=== PATIENT | male | born 1960 | race Caucasian/White ===

== ENCOUNTER 2017-01-09 06:39 | Observation (INO) | payer OTHER ==
[~2017-01-09] VITALS: Ht 167.6 cm; Wt 83.6 kg
[2017-01-09] VITALS (8 sets, daily range): BP systolic 122–143; BP diastolic 73–103; PULSE 96–121; RESP 14–22; TEMP 98.8; O2SAT 92–98
[2017-01-09] MEDS ORDERED: ALPR.5 PO (06:55)
[2017-01-09] MEDS ORDERED: AMLO5TAB2 PO (06:55)
[2017-01-09] MEDS ORDERED: AMBI5TAB PO (06:55)
[2017-01-09] MEDS ORDERED: LOSA25TA PO (06:55)
[2017-01-09] MEDS ORDERED: SODIUM CHLOR 0.9% 1000 ML INJ 1,000 ML IV ONE (07:15)
[2017-01-09] MEDS ORDERED: THIAMINE INJ 100 MG in SODIUM CHLORIDE 0.9% INJ 100 ML IV ONE (07:15)
[2017-01-09] MEDS ORDERED: SODIUM CHLORIDE 0.9% FLUSH 5 ML FLUSH IVF PRN (07:15)
[2017-01-09 07:36] LABS: AUTOMATED NEUTROPHIL # 5.5 TH/MM3 (1.8-7.7); BASOPHIL % 0.4 % (0.0-2.0); EOSINOPHIL % 0.4 % (0.0-4.0); HEMATOCRIT 42.7 % (39.0-51.0); HEMO FLAGS DIFF FINAL; LYMPH % 23.8 % (9.0-44.0); LYMPHOCYTE # 1.9 TH/MM3 (1.0-4.8); MEAN CELL VOLUME 93.1 FL (80.0-100.0); MEAN CORPUSCULAR HEMOGLOBIN 33.1 PG (27.0-34.0); MEAN CORPUSCULAR HGB CONC 35.5 % (32.0-36.0); MONO % 6.7 % (0.0-8.0); NEUT % 68.7 % (16.0-70.0); PLATELET COUNT 219 TH/MM3 (150-450); RED BLOOD COUNT 4.59 MIL/MM3 (4.50-5.90); RED CELL DISTRIBUTION WIDTH 13.7 % (11.6-17.2)
[2017-01-09 07:52] LABS: ALT (GPT) 110 U/L (12-78); ANION GAP 13 MEQ/L (5-15); AST (GOT) 101 U/L (15-37); BICARBONATE 27.2 MEQ/L (21.0-32.0); BLOOD UREA NITROGEN 12 MG/DL (7-18); CHLORIDE 106 MEQ/L (98-107); GLOMERULAR FILTRATION RATE 80 ML/MIN (>89); POTASSIUM 3.9 MEQ/L (3.5-5.1); SODIUM (NA) 146 MEQ/L (136-145)
[2017-01-09 07:56] LABS: ALKALINE PHOSPHATASE 100 U/L (45-117); TOTAL BILIRUBIN ADULT 0.3 MG/DL (0.2-1.0)
--- NOTE | 2017-01-09 08:35 | RADRPT ---
EXAM DATE/TIME: 01/09/2017 08:13 [facility] COMPARISON: No previous studies available for comparison. INDICATIONS : Trauma. Fall. Hit right eye on edge of table. RADIATION DOSE: 39.39 CTDIvol (mGy) MEDICAL HISTORY : Hypertension. SURGICAL HISTORY : None. ENCOUNTER: Initial ACUITY: 1 day PAIN SCALE: 2/10 LOCATION: cranial TECHNIQUE: Multiple contiguous axial images were obtained of the head. Using automated exposure control and adj ustment of the mA and/or kV according to patient size, radiation dose was kept as low as reasonably a chievable to obtain optimal diagnostic quality images. FINDINGS: CEREBRUM: Small chronic lacunar infarctions are seen involving the basal ganglia bilaterally. The ventricles ar e normal for age. No evidence of midline shift, mass lesion, hemorrhage or acute infarction. No ext ra-axial fluid collections are seen. POSTERIOR FOSSA: The cerebellum and brainstem are intact. The 4th ventricle is midline. The cerebellopontine angle i s unremarkable. EXTRACRANIAL: The visualized portion of the orbits is intact. Note is made of periorbital soft tissue swelling invo lving the infraorbital soft tissues on the right. SKULL: The calvaria is intact. No evidence of skull fracture. CONCLUSION: 1. Infraorbital soft tissue swelling on the right. 2. Small chronic lacunar infarctions involving the basal ganglia bilaterally. 3. No acute intracranial abnormality. Matthias Concepcion Jr., MD on January 09, 2017 at 8:30 Board Certified Radiologist. This report was verified electronically.
--- NOTE | 2017-01-09 08:35 | PD ---
HPI Chief Complaint: Eye Problems/Injury Time Seen by Provider: 06:56 Travel History International Travel<30 days: No Contact w/Intl Traveler<30days: No Traveled to known affect area: No History of Present Illness HPI Patient 56-year-old male who was drinking last night for bike week staying in a hotel here. His states that he falls fairly frequently when he gets out of bed after drinking but they have soft carpet at home. The hotel this staying and has hardwood floors and he fell last night and she found him on the floor passed out. He is obviously intoxicated on arrival and states that he has right eye pain. Denies any other injuries. Denies any chest pain shortness of breath abdominal pain nausea vomiting diarrhea. PFSH Past Medical History Anxiety: Yes Diminished Hearing: No Hypertension: Yes Immunizations Current: Yes Tetanus Vaccination: < 5 Years Influenza Vaccination: Yes Past Surgical History Surgical History: No Previous Surgery Social History Alcohol Use: Yes Tobacco Use: No Substance Use: No Allergies-Medications (Allergen,Severity, Reaction): Coded Allergies: No Known Allergies (Unverified , 01/09/17) Reported Meds & Prescriptions Reported Meds & Active Scripts Active Reported Simvastatin 20 Mg Tab 20 Mg PO DAILY Amlodipine (Amlodipine Besylate) 5 Mg Tab 2.5 Mg PO DAILY Xanax (Alprazolam) 0.5 Mg Tab 0.5 Mg PO Q6H PRN Ambien (Zolpidem Tartrate) 5 Mg Tab 12.5 Mg PO HS PRN Losartan (Losartan Potassium) 25 Mg Tab 50 Mg PO DAILY Review of Systems Except as stated in HPI: all other systems reviewed are Neg Physical Exam Narrative GENERAL: Well-developed well-nourished no apparent distress SKIN: Warm and dry. HEAD: No davis signs, there is carlos manuel-orbital edema and ecchymosis on the right. Normocephalic. EYES: Pupils equal and round and reactive to light. No scleral icterus. No injection or drainage. There is significant subconjunctival hemorrhage on the right covering nearly the entire sclera. Vision is intact bilaterally. Visual carpio are intact bilaterally. Ashvin-Pen shows a pressure of 9 on the right, there is no floor seen uptake. ENT: No nasal bleeding or discharge. Mucous membranes pink and moist. NECK: Trachea midline. No JVD. No cervical tenderness in the midline, no step- off. CARDIOVASCULAR: Regular rate and rhythm. No murmur appreciated. RESPIRATORY: No accessory muscle use. Clear to auscultation. Breath sounds equal bilaterally. GASTROINTESTINAL: Abdomen soft, non-tender, nondistended. Hepatic and splenic margins not palpable. MUSCULOSKELETAL: No obvious deformities. No clubbing. No cyanosis. No edema. Extremities are atraumatic, pulses motor and sensory intact distal in all 4 extremities compartments are soft. There are no TL or S spine tenderness or step-off.. NEUROLOGICAL: Awake and alert. Cranial nerves II through XII are grossly intact nonfocal. Motor grossly within normal limits. Minimally slurred speech consistent with alcohol intoxication. Follows commands in all 4 extremities. PSYCHIATRIC: Appropriate mood and affect; insight and judgment normal. Data Data Last Documented VS Vital Signs Date Time Temp Pulse Resp B/P Pulse Ox O2 Delivery O2 Flow Rate FiO2 01/09/17 13:24 109 22 130/75 92 Nasal Cannula 2 Orders Electrocardiogram (01/09/17 07:05) Complete Blood Count With Diff (01/09/17 07:05) Comprehensive Metabolic Panel (01/09/17 07:05) Ct Brain W/O Iv Contrast(Rout) (01/09/17 07:05) Blood Glucose (01/09/17 07:05) Ecg Monitoring (01/09/17 07:05) Iv Access Insert/Monitor (01/09/17 07:05) Oximetry (01/09/17 07:05) Sodium Chloride 0.9% Flush (Ns Flush) (01/09/17 07:15) Alcohol (Ethanol) (01/09/17 07:05) Ct Cerv Spine W/O Contrast (01/09/17 ) Ct Facial Bones W/O Iv Cont (01/09/17 ) Sodium Chlor 0.9% 1000 Ml Inj (Ns 1000 M (01/09/17 07:15) Thiamine Inj (Thiamine Inj) (01/09/17 07:15) Apply Cervical Collar (01/09/17 07:07) Morphine Inj (Morphine Inj) (01/09/17 08:45) Ondansetron Inj (Zofran Inj) (01/09/17 08:45) Fluorescein Strip (Kmirq-H-Isodah A.T.) (01/09/17 08:45) Proparacaine 0.5% Opth Soln (Alcaine 0.5 (01/09/17 08:45) Admit Order (Ed Use Only) (01/09/17 ) Labs Laboratory Tests Test 01/09/17 07:10 White Blood Count 8.0 TH/MM3 Red Blood Count 4.59 MIL/MM3 Hemoglobin 15.2 GM/DL Hematocrit 42.7 % Mean Corpuscular Volume 93.1 FL Mean Corpuscular Hemoglobin 33.1 PG Mean Corpuscular Hemoglobin 35.5 % Concent Red Cell Distribution Width 13.7 % Platelet Count 219 TH/MM3 Mean Platelet Volume 7.4 FL Neutrophils (%) (Auto) 68.7 % Lymphocytes (%) (Auto) 23.8 % Monocytes (%) (Auto) 6.7 % Eosinophils (%) (Auto) 0.4 % Basophils (%) (Auto) 0.4 % Neutrophils # (Auto) 5.5 TH/MM3 Lymphocytes # (Auto) 1.9 TH/MM3 Monocytes # (Auto) 0.5 TH/MM3 Eosinophils # (Auto) 0.0 TH/MM3 Basophils # (Auto) 0.0 TH/MM3 CBC Comment DIFF FINAL Differential Comment Sodium Level 146 MEQ/L Potassium Level 3.9 MEQ/L Chloride Level 106 MEQ/L Carbon Dioxide Level 27.2 MEQ/L Anion Gap 13 MEQ/L Blood Urea Nitrogen 12 MG/DL Creatinine 0.97 MG/DL Estimat Glomerular Filtration 80 ML/MIN Rate Random Glucose 98 MG/DL Calcium Level 8.4 MG/DL Total Bilirubin 0.3 MG/DL Aspartate Amino Transf 101 U/L (AST/SGOT) Alanine Aminotransferase 110 U/L (ALT/SGPT) Alkaline Phosphatase 100 U/L Total Protein 7.4 GM/DL Albumin 4.1 GM/DL Ethyl Alcohol Level 318 MG/DL [facility] Medical Decision Making Medical Screen Exam Complete: Yes Emergency Medical Condition: Yes Interpretation(s) EKG shows normal sinus rhythm with a borderline left axis deviation, normal R- wave progression. No concerning ST-T changes. Intervals within normal limits. Discussed the borderline EKG. Differential Diagnosis Closed head injury, open globe unlikely, subconjunctival hemorrhage, retrobulbar hematoma, intoxication, sleep apnea. Narrative Course Very intoxicated 56-year-old male with a history of head injury last night/ early this morning. Patient does have significant edema and subconjunctival hemorrhage on the right. CT scans are reassuring. His c-collar was removed. Eye exam is reassuring. However he remains significantly intoxicated and will be observed in the emergency department until at least clinical sobriety for reassessment by myself. On reassess at 1330, patient is fairly difficult to arouse and is snoring very loudly. Pulse oximeter was placed on him a satting 80. With some stimulation he arouses and begins to said 98% on 2 L nasal cannula. He is still very groggy. He did have significant alcohol on arrival however given his prolonged arousal at this point I think that observation for neurologic checks is appropriate. Discussed with the residents on-call who will admit. Attending physician will be Dr. Farias. Last [address] 01/09/17 0705 Signed Impressions: Service Date/Time: Monday, January 09, 2017 08:13 - CONCLUSION: 1. Infraorbital soft tissue swelling on the right. 2. Small chronic lacunar infarctions involving the basal ganglia bilaterally. 3. No acute intracranial abnormality. Matthias Concepcion Jr., MD Maxillofacial CT 01/09/17 0000 Signed Impressions: Service Date/Time: Monday, January 09, 2017 08:13 - CONCLUSION: Right periorbital soft tissue swelling Bilateral exophthalmos No evidence of acute bony injury or soft tissue injury to the orbital contents. Luis Barrios MD Cervical Spine CT 01/09/17 0000 Signed Impressions: Service Date/Time: Monday, January 09, 2017 08:13 - CONCLUSION: 1. No fracture or dislocation. 2. Multilevel degenerative changes most pronounced at C6-C7 with significant central canal stenosis. Matthias Concepcion Jr., MD Diagnosis Primary Impression: Concussion Qualified Code: S06.0X9A - Concussion, with LOC of unspecified duration, initial encounter Additional Impressions: Alcohol intoxication Sleep apnea Admitting Information Admitting Physician Requests: Observation Condition: Stable Durga Huffman MD Jan 09, 2017 08:35
--- NOTE | 2017-01-09 08:41 | RADRPT ---
EXAM DATE/TIME: 01/09/2017 08:13 [facility] COMPARISON: No previous studies available for comparison. INDICATIONS : Trauma. Fall. Hit right eye on edge of table. RADIATION DOSE: 24.59 CTDIvol (mGy) MEDICAL HISTORY : Hypertension. SURGICAL HISTORY : None. ENCOUNTER: Initial ACUITY: 1 day PAIN SCALE: 0/10 LOCATION: neck TECHNIQUE: Volumetric scanning of the cervical spine was performed. Multiplanar reconstructions in the sagittal, coronal and oblique axial planes were performed. Using automated exposure control and adjustment o f the mA and/or kV according to patient size, radiation dose was kept as low as reasonably achievable to obtain optimal diagnostic quality images. FINDINGS: VERTEBRAE: Normal vertebral body height. ALIGNMENT: No evidence of subluxation. C2-C3: The bony spinal canal is normal in size. No evidence of disc bulge or herniation. The neural forami na are bilaterally patent. C3-C4: A mild central bulge. No abutment of the cord or central canal stenosis. Bony uncovertebral hypertrop hy with mild narrowing of the right neural foramen. The left remains patent. C4-C5: There is disc space narrowing with a broad-based disc osteophyte complex. No central canal stenosis. Bony uncovertebral hypertrophy generates mild narrowing of the neural foramina bilaterally. C5-C6: Disc space narrowing with broad-based disc osteophyte complex abuts the ventral portion of the cord. There is narrowing of the lateral recesses bilaterally as well as the neural foramen. C6-C7: There is disc space narrowing with a broad-based disc osteophyte complex which causes significant juliann tral canal stenosis. Anterior to posterior dimension of the central canal is 5 mm. Bony uncovertebral hypertrophy causes narrowing of the lateral recesses as well as the neural foramen bilaterally. C7-T1: The bony spinal canal is normal in size. No evidence of disc bulge or herniation. The neural forami na are bilaterally patent. CONCLUSION: 1. No fracture or dislocation. 2. Multilevel degenerative changes most pronounced at C6-C7 with significant central canal stenosis. Matthias Concepcion Jr., MD on January 09, 2017 at 8:34 Board Certified Radiologist. This report was verified electronically.
[2017-01-09] MEDS ORDERED: PROPARACAINE HCL 0.5% OPHT SOLN 15 ML BTL EACH EYE ONE (08:45)
[2017-01-09] MEDS ORDERED: MORPHINE SULFATE 8 MG/ML INJ IV PUSH ONE (08:45)
[2017-01-09] MEDS ORDERED: FLUORESCEIN SOD 1 MG STRIP EACH EYE ONE (08:45)
[2017-01-09] MEDS ORDERED: ONDANSETRON HCL 4 MG/2 ML VIAL IV PUSH ONE (08:45)
--- NOTE | 2017-01-09 09:10 | RADRPT ---
EXAM DATE/TIME: 01/09/2017 08:13 [facility] COMPARISON: No previous studies available for comparison. INDICATIONS : Trauma. Fall. Hit right eye on edge of table. Bruising around right eye. RADIATION DOSE: 65.23 CTDIvol (mGy) MEDICAL HISTORY : Hypertension. SURGICAL HISTORY : None. ENCOUNTER: Initial ACUITY: 1 day PAIN SCORE: 8/10 LOCATION: Right facial TECHNIQUE: Volumetric scanning of the facial bones was performed. Using automated exposure control and adjustme nt of the mA and/or kV according to patient size, radiation dose was kept as low as reasonably achiev able to obtain optimal diagnostic quality images. FINDINGS: ORBITS: Bilateral exophthalmos is noted. There is mild right periorbital soft tissue swelling. The orbital an d infraorbital osseous structures are intact. The retroconal structures have a normal configuration. No radiopaque foreign bodies are seen. NASAL BONE: The nasal bone and maxillary spine are intact ZYGOMATIC ARCHES: Symmetric without evidence of fracture. SINUSES: The maxillary, ethmoid and frontal sinuses are intact. No air-fluid levels seen. NASAL CAVITY: The nasal septum is intact and midline. The lacrimal ducts are intact. SOFT TISSUES: No radiopaque foreign bodies seen. No soft-tissue swelling is seen. INTRACRANIAL: No intracranial air seen. CRIBIFORM PLATE: Grossly intact. CONCLUSION: Right periorbital soft tissue swelling Bilateral exophthalmos No evidence of acute bony injury or soft tissue injury to the orbital contents. Luis Barrios MD on January 09, 2017 at 9:05 Board Certified Radiologist. This report was verified electronically.
[2017-01-09] MEDS ORDERED: ZOLPIDEM TARTRATE 5 MG TAB PO PRN (13:45)
--- NOTE | 2017-01-09 13:46 | HHI.HP ---
[facility] Service Family Medicine Primary Care Physician Non-Staff Admission Diagnosis Concussion/Altered mental status Diagnoses: Chief Complaint: Fall International Travel<30 Days: No Contact w/Intl Traveler<30days: No Known Affected Area: No History of Present Illness 56 y/o male presents to ED after falling last night. is present and provides some of the history. He doesn't remember what happened last night. He rolled out of bed this morning and hit his eye. was present, didn't hear him fall, but found him on the ground, crawling. She was concerned about the amount of blood present, so called [facility]. They are here in town from [place], here at a hotel. Per , she states he drinks 1/2 liter of Bacardi. He usually drinks a 1-3 shots of liquor/night. She is concerned about his drinking. He states he has quit in the past. Never had withdrawal seizures or blacked out. No nausea/vomiting today. reports he vomited last night. Endorses headache. No fever/chills, dizziness. Thirsty. Some pain around eye. No blurry vision or difficulty seeing. States he usually has trouble sleeping. Usually snores while sleeping. Been diagnosed with sleep apnea, doesn't use CPAP. (Neptali Brandt MD R1) Review of Systems Constitutional: DENIES: Fever, Chills, Dizziness, Night Sweats Eyes: DENIES: Blurred vision, Eye pain, Photosensitivity, Double Vision Ears, nose, mouth, throat: DENIES: Throat pain Respiratory: COMPLAINS OF: Snoring, DENIES: Cough, Shortness of breath Cardiovascular: DENIES: Chest pain, Palpitations Gastrointestinal: DENIES: Abdominal pain, Black stools, Bloody stools, Constipation, Diarrhea, Nausea, Vomiting, Difficulty Swallowing Genitourinary: DENIES: Urgency, Hematuria, Dysuria Musculoskeletal: DENIES: Joint pain, Neck pain Integumentary: DENIES: Abnormal pigmentation, Rash Neurologic: COMPLAINS OF: Headache, DENIES: Seizures Psychiatric: DENIES: Anxiety, Confusion (Neptali Brandt MD R1) Past Family Social History Past Medical History HTN Sleep apnea HLD Past Surgical History None Reported Medications Reported Meds & Active Scripts Active Reported Amlodipine (Amlodipine Besylate) 5 Mg Tab 5 Mg PO DAILY Xanax (Alprazolam) 0.5 Mg Tab 0.5 Mg PO Q6H PRN Ambien (Zolpidem Tartrate) 5 Mg Tab 5 Mg PO HS PRN Losartan (Losartan Potassium) 25 Mg Tab 25 Mg PO DAILY (Neptali Brandt MD R1) Allergies: Coded Allergies: No Known Allergies (Unverified , 01/09/17) Active Ordered Medications Active Medications Fluorescein Sodium (Lxnnv-Y-Mgppzr A.t.) 1 mg ONCE ONCE EACH EYE Last administered on 01/09/17 08:45; Admin Dose 1 MG; Start 01/09/17 at 08:45; Stop 01/09/17 at 08:46; Status DC IV Flush 2 ml 2 ml UNSCH PRN IVF; Start 01/09/17 at 07:15 Morphine Sulfate (Morphine Inj) 6 mg ONCE ONCE IV PUSH Last administered on 08:45; Admin Dose 6 MG; Start 01/09/17 at 08:45; Stop 01/09/17 at 08:46 ; Status DC Ondansetron HCl (Zofran Inj) 4 mg ONCE ONCE IV PUSH Last administered on 08:45; Admin Dose 4 MG; Start 01/09/17 at 08:45; Stop 01/09/17 at 08:46; Status DC Proparacaine HCl (Alcaine 0.5% Opht Soln) 1 drop ONCE ONCE EACH EYE Last administered on 01/09/17 09:07; Admin Dose 1 DROP; Start 01/09/17 at 08:45; Stop 01/09/17 at 08:46; Status DC Sodium Chloride 1,000 ml @ 999 mls/hr BOLUS ONCE IV Last administered on 07:38; Admin Dose 999 MLS/HR; Start 01/09/17 at 07:15; Stop 01/09/17 at 08: 15; Status DC Thiamine HCl/ Sodium Chloride (Thiamine Inj/NS Inj) 101 ml @ 101 mls/hr ONCE ONCE IV Last administered on 01/09/17 07:15; Admin Dose 101 MLS/HR; Start 01/09 at 07:15; Stop 01/09/17 at 08:14; Status DC Family History Mother-cancer Father-healthy Social History Alcohol - 1-3 shots liquor/night Tobacco - denies Illicit drug use - denies (Neptali Brandt MD R1) Physical Exam Vital Signs Vital Signs Date Time Temp Pulse Resp B/P Pulse Ox O2 Delivery O2 Flow Rate FiO2 01/09/17 13:24 109 22 130/75 92 Nasal Cannula 2 01/09/17 10:54 121 20 132/89 96 Nasal Cannula 2 01/09/17 08:50 16 01/09/17 08:35 96 14 124/91 97 Nasal Cannula 2 01/09/17 08:11 98 Nasal Cannula 2 01/09/17 06:46 101 18 132/103 93 Physical Exam GENERAL: This is a well-nourished, well-developed patient, in no apparent distress. Groggy SKIN: No rashes, ecchymoses or lesions. Cool and dry. HEAD: Atraumatic. Normocephalic. No temporal or scalp tenderness. EYES: Pupils equal round and reactive. Extraocular motions intact. Right subconjunctival hemorrhage. Bruising around right eye and laceration on right eyebrow. ENT: Nose without bleeding, purulent drainage or septal hematoma. Throat without erythema, tonsillar hypertrophy or exudate. Uvula midline. Airway patent. NECK: Trachea midline. No JVD or lymphadenopathy. Supple, nontender, no meningeal signs. CARDIOVASCULAR: Tachycardic to 110s. Normal rhythm without murmurs, gallops, or rubs. RESPIRATORY: Clear to auscultation. Breath sounds equal bilaterally. No wheezes , rales, or rhonchi. GASTROINTESTINAL: Abdomen soft, non-tender, nondistended. No hepato-splenomegaly , or palpable masses. No guarding. MUSCULOSKELETAL: Extremities without clubbing, cyanosis, or edema. No joint tenderness, effusion, or edema noted. No calf tenderness. NEUROLOGICAL: Awake and alert. Motor and sensory grossly within normal limits. Slurred speech. Laboratory Laboratory Tests Test 01/09/17 07:10 White Blood Count 8.0 Red Blood Count 4.59 Hemoglobin 15.2 Hematocrit 42.7 Mean Corpuscular Volume 93.1 Mean Corpuscular Hemoglobin 33.1 Mean Corpuscular Hemoglobin 35.5 Concent Red Cell Distribution Width 13.7 Platelet Count 219 Mean Platelet Volume 7.4 Neutrophils (%) (Auto) 68.7 Lymphocytes (%) (Auto) 23.8 Monocytes (%) (Auto) 6.7 Eosinophils (%) (Auto) 0.4 Basophils (%) (Auto) 0.4 Neutrophils # (Auto) 5.5 Lymphocytes # (Auto) 1.9 Monocytes # (Auto) 0.5 Eosinophils # (Auto) 0.0 Basophils # (Auto) 0.0 CBC Comment DIFF FINAL Differential Comment Sodium Level 146 Potassium Level 3.9 Chloride Level 106 Carbon Dioxide Level 27.2 Anion Gap 13 Blood Urea Nitrogen 12 Creatinine 0.97 Estimat Glomerular Filtration 80 Rate Random Glucose 98 Calcium Level 8.4 Total Bilirubin 0.3 Aspartate Amino Transf 101 (AST/SGOT) Alanine Aminotransferase 110 (ALT/SGPT) Alkaline Phosphatase 100 Total Protein 7.4 Albumin 4.1 Ethyl Alcohol Level 318 (Neptali Brandt MD R1) Result Diagram: 01/09/17 0710 01/09/17 0710 Imaging Last Impressions Head CT 01/09/17 0705 Signed Impressions: Service Date/Time: Monday, January 09, 2017 08:13 - CONCLUSION: 1. Infraorbital soft tissue swelling on the right. 2. Small chronic lacunar infarctions involving the basal ganglia bilaterally. 3. No acute intracranial abnormality. Matthias Concepcion Jr., MD Maxillofacial CT 01/09/17 0000 Signed Impressions: Service Date/Time: Monday, January 09, 2017 08:13 - CONCLUSION: Right periorbital soft tissue swelling Bilateral exophthalmos No evidence of acute bony injury or soft tissue injury to the orbital contents. Luis Barrios MD Cervical Spine CT 01/09/17 0000 Signed Impressions: Service Date/Time: Monday, January 09, 2017 08:13 - CONCLUSION: 1. No fracture or dislocation. 2. Multilevel degenerative changes most pronounced at C6-C7 with significant central canal stenosis. Matthias Concepcion Jr., MD (Neptali Brandt MD R1) Assessment and Plan Assessment and Plan 56 y/o male with history of HTN, HLD presents with alcohol intoxication. Will admit to observation overnight to monitor respiratory status and alcohol intoxication. Code Status Full Discussed Condition With Dr. Farias (Neptali Brandt MD R1) Attending Attestation Patient seen and examined. Case reviewed and discussed with the resident team. Agree with plan of care as discussed with me and documented in the resident note. (Laila Farias MD) Problem List: (1) Alcohol intoxication Status: Acute Plan: Alcohol level 318 on arrival. Per ED report, patient intoxicated and falling asleep with desaturation. Patient more alert during history taking. 's per , he normally drinks 1-3 shots of liquor per night. However last night he drank half a liter of Bacardi, per . -[facility] protocol -Monitor vitals and neurological status -Folic acid, thiamine, multivitamins -Protonix 40mg PO daily for GI protection -Urine drug screen -Discussed risks of alcohol use and options for quitting. ED -Given 100mg Thiamine IV (2) Sleep apnea Status: Acute Plan: Has history of sleep apnea, but doesn't like wearing his CPAP at night. During exam, patient fell sleep and was snoring in the room. states that she is worried about him especially when she notices he stops breathing during the night. -CPAP at night while hospitalized -Recommended polysomnography as outpatient -Continuous pulse ox -Titrate nasal cannula oxygen PRN (3) HTN (hypertension) Status: Acute Plan: Blood pressure 132/103 arrival. Take several medications at home. is bringing medications for accurate dose. -Continue amlodipine 5mg daily -Continue losartan 25mg daily (4) Conjunctival hemorrhage, right eye Status: Acute Plan: Patient fell out of bed and hit his eye. Patient has normal eye movement , pupils equal round and reactive, no changes in vision. Imaging reassuring. Maxillofacial CT: right periorbital soft tissue swelling. No acute bony injury or soft tissue injury to the orbital contents Cervical spine CT: no fracture or dislocation Head CT: Infraorbital soft tissue swelling on the right -Pain control with tylenol, morphine for breakthrough pain -Symptomatic management (5) FEN Status: Acute Plan: Fluids: NS @ 125mls/hr Electrolytes: Na 146, continue to monitor, replace as necessary Nutrition: Regular diet DVT ppx: Lovenox 40mg sq daily GI ppx: Protonix (Neptali Brandt MD R1) Problem Qualifiers (1) Alcohol intoxication: Qualified Code: F10.120 - Alcohol intoxication, uncomplicated (2) Sleep apnea: Qualified Code: G47.30 - Sleep apnea, unspecified type (3) HTN (hypertension): Qualified Code: I10 - Essential hypertension Neptali Brandt MD R1 Jan 09, 2017 13:46 Laila Farias MD Jan 10, 2017 11:55
[2017-01-09] MEDS: THIAMINE HCL 100 MG TAB PO SCH (14:45)
[2017-01-09] MEDS ORDERED: FLUMAZENIL 0.5 MG/5 ML VIAL IV PUSH PRN (14:45)
[2017-01-09] MEDS ORDERED: ENALAPRILAT 1.25 MG/ML VIAL IV PRN (14:45)
[2017-01-09] MEDS ORDERED: ACETAMINOPHEN 325 MG TAB PO PRN ×2 (14:45→15:45)
[2017-01-09] MEDS ORDERED: LORazepam 1 MG TAB PO PRN (14:45)
[2017-01-09] MEDS ORDERED: SODIUM CHLORIDE 0.9% FLUSH 5 ML FLUSH IV FLUSH PRN (14:45)
[2017-01-09] MEDS ORDERED: LORazepam 2 MG TAB PO PRN (14:45)
[2017-01-09] MEDS ORDERED: LORazepam 2 MG/ML VIAL IV PUSH PRN ×4 (14:45)
[2017-01-09] MEDS ORDERED: ONDANSETRON HCL 4 MG/2 ML VIAL IV PRN (14:45)
--- NOTE | 2017-01-09 14:55 | HHI.FPPN ---
Subjective Remarks Pt. seen, examined and discussed with Dr. Brandt. This is a 56 yo male with known HTN, dyslipidemia and obstructive sleep apnea who became intoxicated on rum last evening, went to bed, fell out of bed strikin ghhis right eye and awoke bleeding and tried to crawl to the bathroom. This woke his who was alarmed by the amount of blood and called 911 who transported him to the hospital. Pt. has no recall of how much he drank -- reports 1/2 bottle of rum. Normally drinks 1-3 shots, has not withdrawn , no seizures from abstinence per his report. Now he has complaints of right temporal headache, but he has clear vision both eyes. No pain in his neck or spine, no joint or muscle aches, voids X1/ night usually. No diarrhea, bloody stools. No fever or chills, feels very thirsty. Feels groggy. reports he did vomit last night. They live in [facility] and had planned to return home today. He was diagnosed with obstructive sleep apnea but does not like wearing the apparatus. He is retired, nonsmoker, no illicits. Mom had cancer, dad is L&W, no children. Takes amlodipine, losartan, simvastatin, ambien at hs. to bring meds to obtain doses. See H&P for this admission for additional historical details. Objective Vitals Vital Signs Date Time Temp Pulse Resp B/P Pulse Ox O2 Delivery O2 Flow Rate FiO2 01/09/17 13:24 109 22 130/75 92 Nasal Cannula 2 01/09/17 10:54 121 20 132/89 96 Nasal Cannula 2 01/09/17 08:50 16 01/09/17 08:35 96 14 124/91 97 Nasal Cannula 2 01/09/17 08:11 98 Nasal Cannula 2 01/09/17 06:46 101 18 132/103 93 Result Diagram: 01/09/17 0710 01/09/17 0710 Other Results Laboratory Tests Test 01/09/17 07:10 Sodium Level 146 MEQ/L Estimat Glomerular Filtration 80 ML/MIN Rate Calcium Level 8.4 MG/DL Aspartate Amino Transf 101 U/L (AST/SGOT) Alanine Aminotransferase 110 U/L (ALT/SGPT) Ethyl Alcohol Level 318 MG/DL Imaging Last Impressions Head CT 01/09/17 0705 Signed Impressions: Service Date/Time: Monday, January 09, 2017 08:13 - CONCLUSION: 1. Infraorbital soft tissue swelling on the right. 2. Small chronic lacunar infarctions involving the basal ganglia bilaterally. 3. No acute intracranial abnormality. Matthias Concepcion Jr., MD Maxillofacial CT 01/09/17 0000 Signed Impressions: Service Date/Time: Monday, January 09, 2017 08:13 - CONCLUSION: Right periorbital soft tissue swelling Bilateral exophthalmos No evidence of acute bony injury or soft tissue injury to the orbital contents. Luis Barrios MD Cervical Spine CT 01/09/17 0000 Signed Impressions: Service Date/Time: Monday, January 09, 2017 08:13 - CONCLUSION: 1. No fracture or dislocation. 2. Multilevel degenerative changes most pronounced at C6-C7 with significant central canal stenosis. Matthias Concepcion Jr., MD Objective Remarks O. CONSTITUTIONAL/GEN: normally nourished, in NAD. Obese. EYES: subconjunctival hemorrhage on right, PERRLA, EOMI. Vision equal bilaterally. ENT: Mouth and pharynx normal. Dry mm. NECK: trachea midline, no lymphadenopathy LUNGS: clear A-P, respiratory effort is normal. CARDIOVASCULAR: RR without murmur or gallop. No significant edema. GI/ABD: soft without masses, without organomegaly. Obese, protuberant. : no CVA tenderness NEURO: No focal deficits. Speech slurred and slow responses. SKIN: color normal, no rashes noted. Bruising around right eye and laceration right lateral eyebrow. Multiple tattoos both UE. HEME/LYMPH: no petechia or significant adenopathy MUSC: back is normal in appearance. Extremities are normal in appearance. PSYCH/MENTAL STATUS: Alert and oriented x 3. A/P Assessment and Plan Acute and chronic alcoholism, laceration right eyebrow and subconjunctival hemorrhage. Dehydration. Obstructive sleep apnea. Recommended to patient and that he be retested for cpap apparatus paul. Recommend abstinence from alcohol and avoidance of Ambien at hs until on cpap. Attending Attestation Patient seen and examined. Case reviewed and discussed with the resident team. Agree with plan of care as discussed with me and documented in the resident note. Laila Farias MD Jan 09, 2017 14:55
[2017-01-09] MEDS: SODIUM CHLOR 0.9% 1000 ML INJ 1,000 ML IV SCH ×2 (15:03→22:37)
[2017-01-09] MEDS: FOLIC ACID 1 MG TAB PO SCH (15:03)
[2017-01-09] MEDS ORDERED: SIMV20TA PO (15:06)
[2017-01-09] MEDS ORDERED: MORPHINE SULFATE 4 MG/ML INJ IV PRN (15:45)
[2017-01-09] MEDS ORDERED: ENOXAPARIN SODIUM 40 MG/0.4 ML SYRINGE SQ SCH (16:00)
[2017-01-09] MEDS: PANTOPRAZOLE SOD 40 MG DELAYED RELEASE TAB PO SCH (16:44)
[2017-01-09 16:56] LABS: AMPHETAMINE, URINE NEG (NEG); BARBITURATES, URINE NEG (NEG); COCAINE, URINE NEG (NEG)
[2017-01-09] MEDS: MULTIVITAMINS/MINERALS THERAPEUTIC TAB PO SCH (17:07)
[2017-01-09] MEDS: SODIUM CHLORIDE 0.9% FLUSH 5 ML FLUSH IV FLUSH SCH (20:41)
[2017-01-10 00:08] VITALS: BP 141/98; PULSE 93; RESP 18; TEMP 98.7; O2SAT 94
[2017-01-10] MEDS ORDERED: MELATONIN 5 MG TAB PO PRN (01:15)
[2017-01-10 04:17] VITALS: BP 152/87; PULSE 87; RESP 18; TEMP 98.4; O2SAT 98
[2017-01-10] MEDS: SODIUM CHLOR 0.9% 1000 ML INJ 1,000 ML IV SCH (06:28)
[2017-01-10 06:53] LABS: AUTOMATED NEUTROPHIL # 4.8 TH/MM3 (1.8-7.7); BASOPHIL % 0.6 % (0.0-2.0); EOSINOPHIL # 0.1 TH/MM3 (0-0.4); EOSINOPHIL % 0.9 % (0.0-4.0); HEMATOCRIT 35.1 % (39.0-51.0); HEMO FLAGS DIFF FINAL; LYMPH % 17.2 % (9.0-44.0); LYMPHOCYTE # 1.1 TH/MM3 (1.0-4.8); MEAN CELL VOLUME 94.4 FL (80.0-100.0); MEAN CORPUSCULAR HEMOGLOBIN 33.2 PG (27.0-34.0); MEAN CORPUSCULAR HGB CONC 35.1 % (32.0-36.0); MONO % 8.6 % (0.0-8.0); NEUT % 72.7 % (16.0-70.0); PLATELET COUNT 142 TH/MM3 (150-450); RED BLOOD COUNT 3.71 MIL/MM3 (4.50-5.90); RED CELL DISTRIBUTION WIDTH 13.6 % (11.6-17.2); WHITE BLOOD COUNT 6.6 TH/MM3 (4.0-11.0)
[2017-01-10 07:27] LABS: ALKALINE PHOSPHATASE 79 U/L (45-117); ALT (GPT) 78 U/L (12-78); ANION GAP 10 MEQ/L (5-15); AST (GOT) 63 U/L (15-37); BICARBONATE 27.7 MEQ/L (21.0-32.0); BLOOD UREA NITROGEN 12 MG/DL (7-18); CHLORIDE 103 MEQ/L (98-107); GLOMERULAR FILTRATION RATE 101 ML/MIN (>89); POTASSIUM 3.8 MEQ/L (3.5-5.1); SODIUM (NA) 141 MEQ/L (136-145); TOTAL BILIRUBIN ADULT 0.6 MG/DL (0.2-1.0)
[2017-01-10 08:19] VITALS: BP 150/95; PULSE 68; RESP 18; TEMP 98.3; O2SAT 95
[2017-01-10] MEDS: MULTIVITAMINS/MINERALS THERAPEUTIC TAB PO SCH (08:44)
[2017-01-10] MEDS: FOLIC ACID 1 MG TAB PO SCH (08:44)
[2017-01-10] MEDS: SODIUM CHLORIDE 0.9% FLUSH 5 ML FLUSH IV FLUSH SCH (08:44)
[2017-01-10] MEDS: THIAMINE HCL 100 MG TAB PO SCH (08:44)
[2017-01-10] MEDS: PANTOPRAZOLE SOD 40 MG DELAYED RELEASE TAB PO SCH (08:44)
[2017-01-10] MEDS ORDERED: LOSARTAN 25 MG TAB PO SCH (09:00)
[2017-01-10] MEDS ORDERED: amLODIPine BESYLATE 5 MG TAB PO SCH (09:00)
--- NOTE | 2017-01-10 10:30 | HHI.DCPOC ---
Discharge Care Plan Diagnosis: (1) Alcohol intoxication (2) HTN (hypertension) (3) Sleep apnea (4) Conjunctival hemorrhage, right eye Goals to Promote Your Health * To prevent worsening of your condition and complications * To maintain your health at the optimal level Directions to Meet Your Goals Take your medications as prescribed Follow your dietary instruction Follow activity as directed Keep your appointments as scheduled Take your immunizations and boosters as scheduled If your symptoms worsen call your PCP, if no PCP go to Urgent Care Center or Emergency Room Smoking is Dangerous to Your Health. Avoid second hand smoke Call the 24-hour hour crisis hotline for domestic abuse at India Thompson MD R2 Jan 10, 2017 10:30
[2017-01-10] MEDS ORDERED: ERYTOIN10 RIGHT EYE (10:33)
--- NOTE | 2017-01-10 11:40 | HHI.FPPN ---
Subjective Remarks Patient seen and examined this morning. No acute events overnight. Reports feeling more alert this morning. Didn't sleep well overnight, states because he didn't receive his Ambien. States he did sleep a lot during the day yesterday. Pain is doing well. No changes in vision, eye pain. Denies any chest pain, SOB, abdominal pain, leg pain. Discussed the need for CPAP at home, which should help , instead of taking Ambien. Also discussed risks of alcohol intake. (Neptali Brandt MD R1) Objective Vitals Vital Signs Date Time Temp Pulse Resp B/P Pulse Ox O2 Delivery O2 Flow Rate FiO2 01/10/17 08:19 98.3 68 18 150/95 95 01/10/17 04:17 98.4 87 18 152/87 98 01/10/17 00:08 98.7 93 18 141/98 94 01/09/17 20:45 98.8 102 18 143/92 98 01/09/17 18:30 102 17 129/82 92 Nasal Cannula 4 01/09/17 16:40 102 20 122/73 93 Nasal Cannula 4 01/09/17 13:24 109 22 130/75 92 Nasal Cannula 2 I/O 01/09/17 01/09/17 01/09/17 01/10/17 01/10/17 01/10/17 07:00 15:00 23:00 07:00 15:00 23:00 Intake Total 550 ml Output Total 400 ml Balance -400 ml 550 ml Intake Oral 300 ml IV Total 250 ml Output Urine Total 400 ml # Voids 1 1 (Neptali Brandt MD R1) Result Diagram: 01/10/1761901/10/17 0620 Objective Remarks O. CONSTITUTIONAL/GEN: normally nourished, in NAD. Obese. LUNGS: clear A-P, respiratory effort is normal. CARDIOVASCULAR: RR without murmur or gallop. No significant edema. GI/ABD: soft without masses, without organomegaly. Obese, protuberant. NEURO: No focal deficits. Normal speech. SKIN: color normal, no rashes noted. Bruising around right eye and laceration right lateral eyebrow. Multiple tattoos both UE. HEME/LYMPH: no petechia or significant adenopathy MUSC: back is normal in appearance. Extremities are normal in appearance. PSYCH/MENTAL STATUS: Alert and oriented x 3. (Neptali Brandt MD R1) A/P Assessment and Plan 56 y/o male with history of HTN, HLD presents with alcohol intoxication. Admitted overnight to monitor alcohol intoxication and breathing. Patient improved this morning. Discharge Planning Today (Neptali Brandt MD R1) Attending Attestation Patient seen and examined. Case reviewed and discussed with the resident team. Agree with plan of care as discussed with me and documented in the resident note. (Laila Farias MD) Problem List: (1) Alcohol intoxication Status: Acute Plan: Alcohol level 318 on arrival. He normally drinks 1-3 shots of liquor per night. Drank half a liter of Bacardi prior to admission Improved this morning, back to baseline Did not require any Ativan for CIWA protocol overnight. -CIWA protocol -Monitor vitals and neurological status -Folic acid, thiamine, multivitamins -Protonix 40mg PO daily for GI protection -Urine drug screen positive for Benzos and Opioids -Discussed risks of alcohol use and options for quitting. (2) Sleep apnea Status: Acute Plan: Has history of sleep apnea, but doesn't like wearing his CPAP at night. states that she is worried about him especially when she notices he stops breathing during the night. -Recommended polysomnography as outpatient and wearing CPAP at home -Continuous pulse ox -Titrate nasal cannula oxygen PRN (3) HTN (hypertension) Status: Acute Plan: Blood pressure 132/103 arrival. Take several medications at home. -Continue losartan 25mg daily (4) Conjunctival hemorrhage, right eye Status: Acute Plan: Patient fell out of bed and hit his eye. Patient has normal eye movement , pupils equal round and reactive, no changes in vision. Imaging reassuring. Maxillofacial CT: right periorbital soft tissue swelling. No acute bony injury or soft tissue injury to the orbital contents Cervical spine CT: no fracture or dislocation Head CT: Infraorbital soft tissue swelling on the right -Pain control with tylenol, morphine for breakthrough pain -Symptomatic management (5) FEN Status: Acute Plan: Fluids: NS @ 125mls/hr Electrolytes: wnl, replace as necessary Nutrition: Regular diet DVT ppx: Lovenox 40mg sq daily GI ppx: Protonix (Neptali Brandt MD R1) Problem Qualifiers (1) Alcohol intoxication: Qualified Code: F10.120 - Alcohol intoxication, uncomplicated (2) Sleep apnea: Qualified Code: G47.30 - Sleep apnea, unspecified type (3) HTN (hypertension): Qualified Code: I10 - Essential hypertension Neptali Brandt MD R1 Jan 10, 2017 11:40 Laila Farias MD Jan 10, 2017 12:03
--- NOTE | 2017-01-10 14:14 | EKG ---
Date Performed: 01/09/2017 Time Performed: 08:01:50 PTAGE: 56 years EKG: Sinus rhythm BORDERLINE LEFT AXIS DEVIATION BORDERLINE ECG INTERPRETATION BASED ON A DEFAULT AGE OF 40 YEARS NO PREVIOUS TRACING DOCTOR: Dung Mcgraw Interpretating Date/Time 01/10/2017 14:03:12
== END 2017-01-10 13:15 | disposition home or self-care (01) ==
LOC: NEPC 06:39 → NEDA 13:25 → NEPHCDU 18:52
PROVIDERS: ADMIT Family Medicine; ATTEND Family Medicine
DX: S06.0X9A Concussion with loss of consciousness of unspecified duration, initial encounter (principal); H11.31 Conjunctival hemorrhage, right eye; F10.120 Alcohol abuse with intoxication, uncomplicated; F41.9 Anxiety disorder, unspecified; I10 Essential (primary) hypertension; E78.5 Hyperlipidemia, unspecified; M48.00 Spinal stenosis, site unspecified; Y90.8 Blood alcohol level of 240 mg/100 ml or more; W06.XXXA Fall from bed, initial encounter; Y92.59 Other trade areas as the place of occurrence of the external cause; G47.33 Obstructive sleep apnea (adult) (pediatric); E86.0 Dehydration
CPT/HCPCS: 70450; 70486; 72125; 80053; 80307; 82948; 85025; 93005; 96365; 96375; 99285; G0378; J1650; J2270; J2405; J3411; J7030